=== PATIENT | female | born 1950 | race Caucasian/White ===

== ENCOUNTER 2021-05-11 11:59 | Emergency (ER) | payer SELFPAY ==
[2021-05-11] MEDS ORDERED: Acetaminophen 500 MG Tab PO ONE (14:40)
[2021-05-11] MEDS ORDERED: LORazepam 2 MG/ML SDV IVPUSH ONE (15:15)
[2021-05-11] MEDS ORDERED: Sodium Chloride 0.9% 10 ML Syringe FLUSH PRN (15:15)
[2021-05-11] MEDS ORDERED: fentaNYL 100 MCG/2 ML SDV ONE (15:59)
== END 2021-05-11 16:10 ==
LOC: DL.ED 11:59
DX: S12.300A Unspecified displaced fracture of fourth cervical vertebra, initial encounter for closed fracture (principal); Z88.8 Allergy status to other drugs, medicaments and biological substances; Z91.041 Radiographic dye allergy status; Z88.1 Allergy status to other antibiotic agents; Z91.048 Other nonmedicinal substance allergy status; W00.0XXA Fall on same level due to ice and snow, initial encounter
CPT/HCPCS: 70450; 72052; 72125; 96374; 96375; 99285; A9270; J2060; J3010